=== PATIENT | female | born 1985 | race Caucasian/White ===

== ENCOUNTER 2018-02-26 09:56 | Emergency (ER) | payer OTHER ==
[~2018-02-26] VITALS: Ht 160 cm; Wt 70.3 kg
[2018-02-26] MEDS ORDERED: BACTRIM DS TAB1 EACH PO (11:09)
[2018-02-26 11:19] VITALS: BP 122/81
== END 2018-02-26 11:19 | disposition home or self-care (01) ==
LOC: M.ERS 09:56
DX: S61.512A Laceration without foreign body of left wrist, initial encounter (principal); W26.8XXA Contact with other sharp object(s), not elsewhere classified, initial encounter; Y93.89 Activity, other specified; Y92.89 Other specified places as the place of occurrence of the external cause; Y99.8 Other external cause status